=== PATIENT | male | born 1965 ===

== ENCOUNTER 2017-07-19 12:35 | Outpatient (CLI) | payer OTHER ==
[2017-07-19 13:27] LABS: Anion Gap 14 mmol/L (10-20); BUN (Urea Nitrogen) 7 mg/dL (8.4-25.7); Calc. Creatinine Clearance 0 mL/min (70-130); Calcium 10.1 mg/dL (7.8-10.44); Carbon Dioxide 28 mmol/L (22-29); Chloride 101 mmol/L (98-107); Estimated GFR-MDRD Greater than 90; Glucose 82 mg/dL (70-105); Potassium 4.3 mmol/L (3.5-5.1); Sodium 139 mmol/L (136-145)
== END 2017-07-19 12:36 | disposition home or self-care (01) ==
LOC: NAV LABSP 12:35
PROVIDERS: ATTEND Nurse Practitioner Adult Health
DX: R79.9 Abnormal finding of blood chemistry, unspecified (principal)
CPT/HCPCS: 80048